=== PATIENT | female | born 1960 | race Two or more races ===

== ENCOUNTER → 2017-02-04 | Outpatient (CLI) | payer BC ==
--- NOTE | 2017-02-08 16:30 | WOMENS IMAGING REPORT ---
EXAM DESCRIPTION: 3D SCREENING MAMMO BILAT COMPLETED DATE/TIME: 02/04/2017 3:50 pm REASON FOR STUDY: SCREENING MAMMO Z12.31 ENCNTR SCREEN MAMMOGRAM FOR MALIGNANT NEOPLASM OF RON COMPARISON: None available, prior mammograms are over 10 years old TECHNIQUE: Standard craniocaudal and mediolateral oblique views of each breast recorded using digita l acquisition and breast tomosynthesis. LIMITATIONS: None. FINDINGS: RIGHT BREAST MASSES: No suspicious masses. CALCIFICATIONS: No suspicious calcifications. ARCHITECTURAL DISTORTION: None. DEVELOPING DENSITY: None. ASYMMETRY: None noted. OTHER: No other significant findings. LEFT BREAST MASSES: A low-density well-circumscribed nodule is present in the left upper outer quadrant, 7 cm fro m the nipple. Follow-up with left breast ultrasound recommended. CALCIFICATIONS: No suspicious calcifications. ARCHITECTURAL DISTORTION: None. DEVELOPING DENSITY: None. ASYMMETRY: None noted. OTHER: No other significant findings. Read with the assistance of CAD. .[facility] - R2 C[employer]ova Version 1.3 .[facility] Imaging - R2 Cenova Version 1.3 .[facility] - R2 Cenova Version 2.4 .[facility] [place] - R2 Cenova Version 2.4 .[facility] - R2 Sample Sewer Version 9.2 IMPRESSION: No mammographic/tomosynthesis evidence for malignancy right breast. Well-circumscribed low-density nodule upper outer quadrant left breast which requires further evaluat ion with left breast diagnostic ultrasound BREAST DENSITY: b. There are scattered areas of fibroglandular density. BIRAD: 0 Incomplete: Needs Additional Imaging Evaluation and/or prior Mammograms for Comparison. RECOMMENDATION: RECOMMENDED FOLLOW-UP: Left breast diagnostic ultrasound The patient will be contacted for additional imaging. COMMENT: The patient has been notified of the results by letter per [place] requirements. Additional no tification policies are in place for contacting patient with suspicious or incomplete findings. Quality ID #[id number]: The [employer] recommends an annual screening mammogram for women aged 40 years or over. This facility utilizes a reminder system to ensure that all patients receive reminder letters, and/or direct phone calls for appointments. This includes reminders for routine scr eening mammograms, diagnostic mammograms, or other Breast Imaging Interventions when appropriate. Th is patient will be placed in the appropriate reminder system. The [employer] (ACR) has developed recommendations for screening MRI of the breast s in certain patient populations, to be used in conjunction with mammography. Breast MRI surveillanc e may be appropriate for women with more than 20% lifetime risk of developing breast cancer as deter mined by genetic testing, significant family history of the disease, or history of mantle radiation f or Hodgkins Disease. ACR Practice Guidelines 2008. DBT Technology DBT is a type of tomographic mammography. With conventional mammography, overlapping breast tissue ma y make lesions difficult to detect, even with good compression. DBT uses an x-ray tube that rotates a round the breast, taking images at different angles. These images are then combined to create thin sl ices of the breast that the radiologist can view as a 3D reconstruction. The [employer] unit can perform full-field digital mammograms (2D imaging); or DBT (3D imaging); or both, in a combination mode that quickly performs both the mammogram and the tomosynthesis scan while the breast is still compressed. PQRS 6045F: Fluoroscopic imaging is not utilized for breast tomosynthesis. TECHNICAL DOCUMENTATION: FINDING NUMBER: (1) ASSESSMENT: (1) JOB ID: [id number] [employer]- All Rights Reserved
== END ==
LOC: WI 15:35
PROVIDERS: ATTEND Midwife
DX: Z12.31 Encounter for screening mammogram for malignant neoplasm of breast (principal)
CPT/HCPCS: 77063; G0202; 77067

== ENCOUNTER → 2017-03-01 | Outpatient (CLI) | payer BC ==
--- NOTE | 2017-03-01 13:01 | WOMENS IMAGING REPORT ---
EXAM DESCRIPTION: U/S BREAST UNILAT LIMITED COMPLETED DATE/TIME: 03/01/2017 9:40 am REASON FOR STUDY: N63.21 N63.21 UNSPECIFIED LUMP IN THE LEFT BREAST, UPPER OUTER QUAD COMPARISON: Mammogram dated 02/04/2017. TECHNIQUE: Real-time and static grayscale imaging performed of the left breast targeted to the area of clinical/mammographic concern. Selected color Doppler images recorded. LIMITATIONS: None. FINDINGS: MASS: In the 1-2 o'clock location there is a 5 x 8 mm anechoic cyst. This has smooth miguel ins with no internal echoes. No solid mass identified. Normal glandular tissue. OTHER: No other significant finding. IMPRESSION: Simple cyst in the upper outer quadrant. No solid masses or other worrisome findings. BIRAD: 2 Benign findings. RECOMMENDATION: RECOMMENDED FOLLOW-UP: Routine screening mammography. COMMENT: The [employer] (ACR) has developed recommendations for screening MRI of the breasts in certain patient populations, to be used in conjunction with mammography. Breast MRI s urveillance may be appropriate for women with more than 20% lifetime risk of developing breast cancer as determined by genetic testing, significant family history of the disease, or history of mantle r adiation for Hodgkins Disease. ACR Practice Guidelines 2008. TECHNICAL DOCUMENTATION: JOB ID: [id number] [employer]- All Rights Reserved
== END ==
LOC: WI 08:19
PROVIDERS: ATTEND Midwife
DX: N63.21 Unspecified lump in the left breast, upper outer quadrant (principal)
CPT/HCPCS: 76642

== ENCOUNTER → 2018-11-10 | Outpatient (CLI) | payer BC ==
--- NOTE | 2018-11-10 09:13 | WOMENS IMAGING REPORT ---
EXAM DESCRIPTION: 3D SCREENING MAMMO BILAT COMPLETED DATE/TIME: 11/10/2018 8:08 am REASON FOR STUDY: Z12.31 ENCOUNTER FOR SCREENING MAMMOGRAM FOR MALIGNANT NEOPLASM OF BREAST Z12.31 ENCNTR SCREEN MAMMOGRAM FOR MALIGNANT NEOPLASM OF RON COMPARISON: 02/04/2017 EXAM PARAMETERS: Views: Standard craniocaudal and mediolateral oblique views of each breast recorded using digital acquisition and breast tomosynthesis. Read with the assistance of CAD. .[facility] - [employer] Version 9.2 LIMITATIONS: None. FINDINGS: No suspicious masses, suspicious calcifications or architectural distortion. No areas of c oncern. IMPRESSION: NEGATIVE MAMMOGRAM. BIRADS 1. BREAST DENSITY: b. There are scattered areas of fibroglandular density. BIRAD: ASSESSMENT: 1 NEGATIVE RECOMMENDATION: ROUTINE SCREENING COMMENT: The patient has been notified of the results by letter per MQSA requirements. Additional no tification policies are in place for contacting patient with suspicious or incomplete findings. Quality ID #[id number]: The [employer] recommends an annual screening mammogram for women aged 40 years or over. This facility utilizes a reminder system to ensure that all patients receive reminder letters, and/or direct phone calls for appointments. This includes reminders for routine scr eening mammograms, diagnostic mammograms, or other Breast Imaging Interventions when appropriate. Th is patient will be placed in the appropriate reminder system. TECHNICAL DOCUMENTATION: FINDING NUMBER: (1) ASSESSMENT: (1) JOB ID: [id number] [employer]- All Rights Reserved Reading location - IP/workstation name: [email or web address]
== END ==
LOC: WI 06:58
PROVIDERS: ATTEND Midwife
DX: Z12.31 Encounter for screening mammogram for malignant neoplasm of breast (principal)
CPT/HCPCS: 77063; 77067

== ENCOUNTER → 2020-01-09 | Outpatient (CLI) | payer BC ==
--- NOTE | 2020-01-09 13:27 | WOMENS IMAGING REPORT ---
EXAM DESCRIPTION: 3D SCREENING MAMMO BILAT IMAGES COMPLETED DATE/TIME: 01/09/2020 9:04 am REASON FOR STUDY: Z12.31 ENCNTR SCREEN MAMMOGRAM FOR MALIGNANT NEOPLASM OF BREAST Z12.31 ENCNTR SCR EEN MAMMOGRAM FOR MALIGNANT NEOPLASM OF RON COMPARISON: 11/10/2018 and 02/04/2017. EXAM PARAMETERS: Standard craniocaudal and mediolateral oblique views of each breast recorded using digital acquisition and breast tomosynthesis. Read with the assistance of CAD. .[facility] - [employer] Version 9.2 LIMITATIONS: None. FINDINGS: Findings present which are benign by mammographic criteria. No suspicious masses, calcific ations or architectural distortion. Pertinent benign findings: Stable mass in the lateral left breast. Benign mammographic findings may include one or more of the following: Smooth masses, popcorn/rim/coa rse calcifications, asymmetries, post-procedure changes, and lesions with long-standing stability. IMPRESSION: BENIGN MAMMOGRAPHIC FINDINGS. BIRADS 2 BREAST DENSITY: b. There are scattered areas of fibroglandular density. BIRAD: ASSESSMENT: 2 BENIGN FINDING(S) RECOMMENDATION: ROUTINE SCREENING COMMENT: The patient has been notified of the results by letter per MQSA requirements. Additional no tification policies are in place for contacting patient with suspicious or incomplete findings. Quality ID #[id number]: The [employer] recommends an annual screening mammogram for women aged 40 years or over. This facility utilizes a reminder system to ensure that all patients receive reminder letters, and/or direct phone calls for appointments. This includes reminders for routine scr eening mammograms, diagnostic mammograms, or other Breast Imaging Interventions when appropriate. Th is patient will be placed in the appropriate reminder system. TECHNICAL DOCUMENTATION: FINDING NUMBER: (1) ASSESSMENT: (1) JOB ID: [id number] [employer]- All Rights Reserved Reading location - IP/workstation name: [email or web address]
--- OUTSIDE RECORDS SUMMARY | 2020-01-10 18:28 | XMS REPORT ---
:1960 Author Organization [facility] Address [facility] [address] [place] [address] Care Team Providers Name Role Phone Unavailable Unavailable Unavailable Allergies, Adverse Reactions, Alerts This patient has no known allergies or adverse reactions. Medications Ordered Filled Start Stop Current Ordering Indication Dosage Frequency Signature Comments Components Medication Medication Date Date Medication? Clinician (SIG) Name Name fluticasone No 1spray( Q1D fluticason propionate s) e 50 propionate mcg/actuati 50 on nasal mcg/actuat spray,suspe ion nasal nsion Ocate spray,susp 1 spray ension every day Ocate 1 by spray intranasal every day route for by 30 days. intranasal route for 30 days. Problems Condition Condition Condition Status Onset Resolution Last Treatin g Comments Name Details Category Date Date Treatment Clinician Date Seasonal Seasonal Problem Active allergic Allergic 7-08 rhinitis Rhinitis 00:00: 00 Hypothyroid Hypothyroid Problem Inactiv ism ism e 8-21 00:00: 00 Varicose Varicose Problem Active veins of Veins of 8-21 lower Lower 00:00: extremity Extremity 00 Subclinical Subclinical Problem Active hypothyroid Hypothyroid 8-21 ism ism 00:00: 00 Procedures Procedure Date / Time Performed Performing Clinician Deviprabha e MAMMO, screening, digital, 2019-11-26 00:00:00 bilateral Results Test Description Test Time Test Comments Text Results Atomic Results Result Comments visual acuity 2019-11-26 16:31:34 Test Item Value Reference Range Comments R Eye Uncorrected (test code = R Eye Uncorrected) 20/63 L Eye Uncorrected (test code = L Eye Uncorrected) 20/80 R Eye Corrected (test code = R Eye Corrected) 20/25 L Eye Corrected (test code = L Eye Corrected) 20/20 CBC W Auto Differential panel - [id number] 15:22:00 Test Item Value Reference Range Comments WBC (test code = WBC) 5.0 K/uL 4.1-10.9 lym% (test code = lym%) 43.1 % 10.0-58.5 lym# (test code = lym#) 2.2 % 0.6-4.1 mxd# (test code = mxd#) 0.6 % 0.0-1.8 mxd% (test code = mxd%) 13.0 % 0.1-24.0 gran (test code = gran) 2.2 % 2.0-7.8 gran% (test code = gran%) 43.9 % 37.0-92.0 RBC (test code = RBC) 4.27 M/uL 4.20-6.30 HGB (test code = HGB) 13.5 g/dL 14.1-18.1 HCT (test code = HCT) 40.2 % 34.5-53.7 MCV (test code = MCV) 94.2 fL 80.0-97.0 MCH (test code = MCH) 31.6 pg 26.0-32.0 MCHC (test code = MCHC) 33.6 g/dL 31.0-36.0 RDW (test code = RDW) 14.2 % 11.5-14.5 plt (test code = plt) 296 K/uL 140-440 MPV (test code = MPV) 7.0 fL 0.0-99.8 Thyrotropin [Units/volume] in Serum or [id number] 00:00:00 Test Item Value Reference Range Comments Thyrotropin [Units/volume] in Serum or Plasma (test 10 uu/mL code = 3016-3) CBC W Auto Differential panel - [id number] 00:00:00 Test Item Value Reference Range Comments Leukocytes [#/volume] in Blood by Automated 4.8 x10e3/uL 3.4- 10.8 count (test code = 6690-2) Erythrocytes [#/volume] in Blood by Automated 4.34 x10e6/uL 3. 77-5.28 count (test code = 789-8) Hemoglobin [Mass/volume] in Blood (test code = 13.8 g/dL 1 1.1-15.9 718-7) Hematocrit [Volume Fraction] of Blood by 42.4 % 34.0-46 .6 Automated count (test code = 4544-3) Erythrocyte mean corpuscular volume [Entitic 98 fL 79- 97 volume] by Automated count (test code = 787-2) Erythrocyte mean corpuscular hemoglobin 31.8 pg 26.6-33. 0 [Entitic mass] by Automated count (test code = 785-6) Erythrocyte mean corpuscular hemoglobin 32.5 g/dL 31.5-35. 7 concentration [Mass/volume] by Automated count (test code = 786-4) Erythrocyte distribution width [Ratio] by 15.3 % 12.3-1 5.4 Automated count (test code = 788-0) Platelets [#/volume] in Blood by Automated 295 x10e3/uL 150-4 50 count (test code = 777-3) Neutrophils/100 leukocytes in Blood by 51 % not estab . Automated count (test code = 770-8) Lymphocytes/100 leukocytes in Blood by 31 % not estab . Automated count (test code = 736-9) Monocytes/100 leukocytes in Blood by Automated 9 % n ot estab. count (test code = 5905-5) Eosinophils/100 leukocytes in Blood by 9 % not estab . Automated count (test code = 713-8) Basophils/100 leukocytes in Blood by Automated 0 % n ot estab. count (test code = 706-2) immature cells (test code = immature cells) elevator repair mechanic Neutrophils [#/volume] in Blood by Automated 2.4 x10e3/uL 1.4 -7.0 count (test code = 751-8) Lymphocytes [#/volume] in Blood by Automated 1.5 x10e3/uL 0.7 -3.1 count (test code = 731-0) Monocytes [#/volume] in Blood by Automated 0.5 x10e3/uL 0.1-0 .9 count (test code = 742-7) Eosinophils [#/volume] in Blood by Automated 0.4 x10e3/uL 0.0 -0.4 count (test code = 711-2) Basophils [#/volume] in Blood by Automated 0.0 x10e3/uL 0.0-0 .2 count (test code = 704-7) immature granulocytes (test code = immature 0 % not estab. granulocytes) Granulocytes Immature [#/volume] in Blood by 0.0 x10e3/uL 0.0 -0.1 Automated count (test code = 51695-9) Nucleated erythrocytes/100 leukocytes [Ratio] elevator repair mechanic in Blood by Automated count (test code = 82331-7) Morphology [interpretation] in Blood Narrative elevator repair mechanic (test code = 12110-9) Comprehensive metabolic 2000 panel - Serum or [id number] 00:00:00 Test Item Value Reference Range Comments Glucose [Mass/volume] in Serum or Plasma 85 mg/dL 65-99 (test code = 2345-7) Urea nitrogen [Mass/volume] in Serum or 18 mg/dL 6-24 Plasma (test code = 3094-0) Creatinine [Mass/volume] in Serum or Plasma 0.97 mg/dL 0.57 -1.00 (test code = 2160-0) eGFR if nonafricn AM (test code = eGFR if 65 mL/min/1.73 >5 9 nonafricn AM) eGFR if africn AM (test code = eGFR if africn 74 mL/min/1.73 >59 AM) Urea nitrogen/Creatinine [Mass Ratio] in 19 9-23 Serum or Plasma (test code = 3097-3) Sodium [Moles/volume] in Serum or Plasma 141 mmol/L 134-144 (test code = 2951-2) Potassium [Moles/volume] in Serum or Plasma 4.3 mmol/L 3.5- 5.2 (test code = 2823-3) Chloride [Moles/volume] in Serum or Plasma 103 mmol/L 96-10 6 (test code = 2075-0) Carbon dioxide, total [Moles/volume] in Serum 25 mmol/L 20 -29 or Plasma (test code = 2027-9) Calcium [Mass/volume] in Serum or Plasma 9.8 mg/dL 8.7-10. 2 (test code = 48985-6) Protein [Mass/volume] in Serum or Plasma 6.7 g/dL 6.0-8.5 (test code = 2885-2) Albumin [Mass/volume] in Serum or Plasma 4.5 g/dL 3.5-5.5 (test code = 1751-7) Globulin [Mass/volume] in Serum by 2.2 g/dL 1.5-4.5 calculation (test code = 86532-2) Albumin/Globulin [Mass Ratio] in Serum or 2.0 1.2-2. 2 Plasma (test code = 1759-0) Bilirubin.total [Mass/volume] in Serum or 0.4 mg/dL 0.0-1. 2 Plasma (test code = 1975-2) Alkaline phosphatase [Enzymatic 78 IU/L 39-117 activity/volume] in Serum or Plasma (test code = 6768-6) Aspartate aminotransferase [Enzymatic 22 IU/L 0-40 activity/volume] in Serum or Plasma (test code = 1920-8) Alanine aminotransferase [Enzymatic 20 IU/L 0-32 activity/volume] in Serum or Plasma (test code = 1742-6) lipid panel, [id number] 00:00:00 Test Item Value Reference Range Comments Cholesterol [Mass/volume] in Serum or Plasma (test 267 mg/dL 100-199 code = 2093-3) Triglyceride [Mass/volume] in Serum or Plasma 98 mg/dL 0- 149 (test code = 2571-8) Cholesterol in HDL [Mass/volume] in Serum or 83 mg/dL >39 Plasma (test code = 2085-9) Cholesterol in VLDL [Mass/volume] in Serum or 20 mg/dL 5- 40 Plasma by calculation (test code = 51938-2) Cholesterol in LDL [Mass/volume] in Serum or 164 mg/dL 0-9 9 Plasma by calculation (test code = 90092-2) comment: (test code = comment:) elevator repair mechanic Cholesterol.total/Cholesterol.in HDL [Mass ratio] 3.2 ratio 0.0-4.4 in Serum or Plasma (test code = 9830-1) Cholesterol in LDL/Cholesterol in HDL [Mass Ratio] 2.0 ratio 0.0-3.2 in Serum or Plasma (test code = 22901-8) Thyroxine (T4) [Mass/volume] in Serum or [id number] 00:00:00 Test Item Value Reference Range Comments Thyroxine (T4) [Mass/volume] in Serum or Plasma 7.2 ug/dL 4.5-12.0 (test code = 3026-2) Thyroperoxidase Ab [Units/volume] in [id number] 00:00:00 Test Item Value Reference Range Comments Thyroperoxidase Ab [Units/volume] in Serum (test 11 IU/mL 0-34 code = 8099-4) Triiodothyronine (T3) Free [Mass/volume] in Serum or [id number] 00:00:00 Test Item Value Reference Range Comments Triiodothyronine (T3) Free [Mass/volume] in Serum 2.7 pg/mL 2.0-4.4 or Plasma (test code = 3051-0) Assessments Condition Name Status Diagnosis Date Treating Clinici an Adult health examination Active 2019-11-26 15:54:35 Immunization Active 2019-11-26 15:54:35 Screening for malignant neoplasm of Active 2019-11-26 1 5:54:35 cervix Screening for malignant neoplasm of 2019-11-26 1 5:54:35 breast Screening for malignant neoplasm of 2019-11-26 1 5:54:35 colon Screening for cardiovascular system Active 2019-11-26 1 5:54:35 disease Screening for mental disorders 2019-11-26 17:08: 41 Subclinical hypothyroidism Active 2019-11-26 17:13:27 Hyperlipidemia Active 2019-11-26 17:16:47 Hypothyroidism Active 2019-09-05 14:59:47 Varicose veins of lower extremity Active 2019-09-05 14: 59:47 Cough Active 2019-09-05 15:08:19 Seasonal allergic rhinitis Active 2019-09-05 15:51:50 Elevated blood-pressure reading without 15:58:50 diagnosis of hypertension Adult health examination Active 2018-11-21 14:29:09 Immunization Active 2018-11-21 14:29:09 Screening for malignant neoplasm of Active 2018-11-21 1 4:29:09 breast Screening for malignant neoplasm of Active 2018-11-21 1 4:29:09 cervix Screening for malignant neoplasm of 2018-11-21 1 4:29:09 colon Screening for cardiovascular system 2018-11-21 1 4:29:09 disease Hypothyroidism Active 2018-10-18 15:48:22 Varicose veins of lower extremity Active 2018-10-18 15: 51:49 Long-term current use of drug therapy Active 2018-10-18 16:25:42 Encounters Start End Encounter Admission Attending Care Care Encounter Date/Time Date/Time Type Type Clinicians Facility Department ID 2019-11-26 2019-11-26 [facility] [id number] 00:00:00 00:00:00 Huan Felipe28 [facility] Medical MD: [address] [place] [id number] , Ph. 2019-09-05 2019-09-05 [facility] [id number] 00:00:00 00:00:00 KristopherAmrita Hinojosa [address] [address] , Ph. 2018-11-21 2018-11-21 [facility] [id number] 00:00:00 00:00:00 Huan Felipe24 [facility] Medical MD: [address] [place] [address] , Ph. 2018-10-18 2018-10-18 [facility] [id number] 00:00:00 00:00:00 Huan Hinojosa 21 [facility] Medical MD: [address] [place] [phone] , Ph. Plan of Treatment Planned Activity Planned Date Details Comments Future Appointment 2020-02-25 00:00:[address] [phone] Social History Smoking Status Start Date Stop Date Former Smoker Vital Signs Vital Name Observation Time Observation Value Comments BP Diastolic 2019-11-26 00:00:00 84 mm[Hg] Height 2019-11-26 00:00:00 62 [in_i] BMI (Body Mass Index) 2019-11-26 00:00:00 28.5 kg/m2 BP Systolic 2019-11-26 00:00:00 150 mm[Hg] Body Weight 2019-11-26 00:00:00 156 [lb_av] BP Diastolic 2019-09-05 00:00:00 89 mm[Hg] Height 2019-09-05 00:00:00 62 [in_i] BMI (Body Mass Index) 2019-09-05 00:00:00 29.3 kg/m2 BP Systolic 2019-09-05 00:00:00 144 mm[Hg] Body Weight 2019-09-05 00:00:00 160.4 [lb_av] BP Diastolic 2018-11-21 00:00:00 70 mm[Hg] Height 2018-11-21 00:00:00 62 [in_i] BMI (Body Mass Index) 2018-11-21 00:00:00 27.8 kg/m2 BP Systolic 2018-11-21 00:00:00 115 mm[Hg] Body Weight 2018-11-21 00:00:00 152 [lb_av] BP Diastolic 2018-10-18 00:00:00 75 mm[Hg] Height 2018-10-18 00:00:00 62 [in_i] BMI (Body Mass Index) 2018-10-18 00:00:00 27.8 kg/m2 BP Systolic 2018-10-18 00:00:00 117 mm[Hg] Body Weight 2018-10-18 00:00:00 152 [lb_av] Hospital Discharge Instructions 1. Adult health examination well visit, women 50 to 65: care instructions visual acuity 2. Immunization immunization: what you need to know pneumococcal polysaccharide vaccine: what youneed to know Tdap (tetanus, diphtheria, pertussis) vaccine: what you need to know influenza (flu) vaccine (inactivated or recombinant): what you need to know live zoster (shingles) vaccine:what you need to know td (tetanus, diphtheria) vaccine: what you need to know 3. Screening for malignant neoplasm of cervix learning about cervical cancer screening human papillomavirus (HPV): care instructions 4. Screening for malignant neoplasm of breast mammogram screening patient instructions learning about breast cancer screening MAMMO, screening, digital, bilateral 5. Screening for malignant neoplasm of colon colon cancer screening: care instructions fecal occult blood, stool 6. Screening for cardiovascular system disease A healthy heart: care instructions CMP, serum or plasma 7. Screening for mental disorders learning about depression learningabout anxiety disorders learning about alcohol use disorder learning about benefits from quitting smoking 8. Subclinical hypothyroidism C-reactive protein, quantitative ESR (erythrocytesedimentation rate), blood 9. Hyperlipidemia lipid panel, blood CBC w/ auto diff Discussion Note Patient verbalized understanding and agreement with recommended care plan. All questions and concerns were addressed and answered adequately. Follow up visit will address1. Hypothyroidism TSH, serum or plasma T4, total, serum T3, free, serum or plasma thyroid peroxidase (tpo) Ab, serum 2. Varicose veins of lower extremity varicose veins: care instructions 3. Cough CBC w/ auto diff cough: care instructions 4. Seasonal allergic rhinitis fluticasone propionate 50 mcg/actuation nasal spray,suspension seasonal allergies: care instructions managing your allergies: care instructions 5. Elevated blood-pressure reading without diagnosis of hypertension high blood pressure: care instructions low sodium diet (2,000 milligram): care instructions heart- healthy diet: care instructions Discussion Note Patient verbalized understanding and agreement with recommended care plan. All questions and concerns were addressed and answered adequately. Follow up visit will address ape1. Adult health examination well visit, women 50 to 65: care instructions wellness education eating healthy foods: care instructions walking for exercise: care instructions preventing falls: care instructions preventing outdoor falls: care instructions 2. Immunization immunization: what you need to know pneumococcal polysaccharide vaccine: what you need to know pneumococcal conjugate vaccine (pcv13): what you need to know influenza (flu) vaccine (inactivated or recombinant): what you need to know shingles vaccine: what you need to know 3. Screening for malignant neoplasm of breast mammogram screening patient instructions learning about breast cancer screening 4. Screening for malignant neoplasm of cervix learning about Pap tests human papillomavirus (HPV): care instructions 5. Screening for malignant neoplasm of colon colon cancer screening: care instructions colonoscopy referral 6. Screening for cardiovascular system disease A healthy heart: care instructions taking aspirin and other antiplatelets safely: care instructions reducing heart attack risk with daily medicine: care instructions Discussion Note Patient verbalized understanding and agreement with recommended care plan. All questions and concerns were addressed and answered adequately. Follow up visit will address hypothyroidism1. Hypothyroidism T3, free, serum or plasma T4, total, serum thyroid peroxidase (tpo) Ab, serum hypothyroidism: care instructions TSH, serum or plasma T4, total, serum 2. Varicose veins of lower extremity varicose veins: care instructions 3. Long-term current use of drug therapy CBC w/ auto diff lipid panel, blood CMP, serum or plasma Discussion Note Patient verbalized understanding and agreement with recommended care plan. All questions and concerns were addressed and answered adequately. Follow up visit will address ape
== END ==
LOC: WI 08:41
PROVIDERS: ATTEND Midwife
DX: Z12.31 Encounter for screening mammogram for malignant neoplasm of breast (principal)
CPT/HCPCS: 77063; 77067